=== PATIENT | male | born 1965 | race Caucasian/White ===

== ENCOUNTER 2018-07-28 11:00 | Day surgery (SDC) | payer BC ==
[~2018-07-28] VITALS: Ht 175.3 cm; Wt 98.0 kg
[~2018-07-28 11:00] MED LIST: ATOR1TAB21 PO; VENL75CA47 PO
[2018-07-28] MEDS ORDERED: PROPOFOL 200 MG/20 ML VIAL As Ordered ONE (12:55)
[2018-07-28] MEDS ORDERED: LIDOCAINE 2% INJ 100 MG/5 ML SDV (FOR ANES.) As Ordered ONE (12:59)
--- NOTE | 2018-07-28 13:52 | ROOR ---
Patient Name: Tristin Veloz Procedure Date: 07/28/2018 1:31 PM Date of : 1965 Age: 53 Room: [facility] Gender: Male Note Status: Finalized Procedure: Total Colonoscopy to Cecum + Biopsy Polypectomy Indications: Screening in patient at increased risk: Colorectal cancer in brother before age 60, High risk colon cancer surveillance: Personal history of colonic polyps, Last colonoscopy: 2014 Providers: Guicho Sharma MD Referring MD: Ulisses Shipley MD Requesting Provider: Medicines: Monitored Anesthesia Care Complications: No immediate complications. Procedure: Pre-Anesthesia Assessment: - The heart rate, respiratory rate, oxygen saturations, blood pressure, adequacy of pulmonary ventilation, and response to care were monitored throughout the procedure. The Colonoscope was introduced through the anus and advanced to the cecum, identified by appendiceal orifice and ileocecal valve. The colonoscopy was performed without difficulty. The patient tolerated the procedure well. The quality of the bowel preparation was excellent. Findings: The perianal and digital rectal examinations were normal. Non-bleeding internal hemorrhoids were found during retroflexion. The hemorrhoids were small and Grade I (internal hemorrhoids that do not prolapse). Scattered small-mouthed diverticula were found in the recto-sigmoid colon, sigmoid colon and descending colon. A diminutive polyp was found in the cecum. The polyp was sessile. The polyp was removed with a jumbo cold forceps. Resection and retrieval were complete. The exam was otherwise without abnormality on direct and retroflexion views. Impression: - Non-bleeding internal hemorrhoids. - Diverticulosis in the recto-sigmoid colon, in the sigmoid colon and in the descending colon. - One diminutive polyp in the cecum, removed with a jumbo cold forceps. Resected and retrieved. - The examination was otherwise normal on direct and retroflexion views. - The exam was otherwise normal to the cecum. Recommendation: - Patient has a contact number available for emergencies. The signs and symptoms of potential delayed complications were discussed with the patient. Return to normal activities tomorrow. Written discharge instructions were provided to the patient. - High fiber diet. - Discharge patient to home. - Continue present medications. - Await pathology results. - Repeat colonoscopy in 5 years for surveillance based on pathology results. - Return to referring physician. - The findings and recommendations were discussed with the patient's family. Guicho Sharma MD Guicho Sharma MD 07/28/2018 1:51:56 PM This report has been signed electronically. Number of Addenda: 0 Note Initiated On: 07/28/2018 1:31 PM Estimated Blood Loss: Estimated blood loss: none.
[2018-07-28 14:15] VITALS: BP 136/90
== END 2018-07-28 14:32 | disposition home or self-care (01) ==
LOC: M OPP 11:00
PROVIDERS: ATTEND Internal Medicine Gastroenterology
DX: Z12.11 Encounter for screening for malignant neoplasm of colon (principal); Z86.010 Personal history of colon polyps; Z80.0 Family history of malignant neoplasm of digestive organs; K64.0 First degree hemorrhoids; D12.0 Benign neoplasm of cecum; K57.30 Diverticulosis of large intestine without perforation or abscess without bleeding; G47.30 Sleep apnea, unspecified; Z80.3 Family history of malignant neoplasm of breast